=== PATIENT | female | born 1985 | race Caucasian/White ===

== ENCOUNTER 2017-06-06 16:46 | Emergency (ER) | payer MEDICAID ==
[~2017-06-06] VITALS: Ht 162.6 cm; Wt 82.0 kg
[2017-06-06] MEDS ORDERED: ALBUTEROL (0.083%) 2.5MG/3ML NEB HHN ONE (20:00)
[2017-06-06] MEDS ORDERED: IBUPROFEN 600MG TABLET PO ONE (20:00)
[2017-06-06 21:20] VITALS: BP 129/77
== END 2017-06-06 21:21 | disposition home or self-care (01) ==
LOC: ER 18:25
DX: S20.219A Contusion of unspecified front wall of thorax, initial encounter (principal); R05 Cough; X58.XXXA Exposure to other specified factors, initial encounter; Y93.89 Activity, other specified; Y92.89 Other specified places as the place of occurrence of the external cause; Y99.8 Other external cause status
CPT/HCPCS: 71010; 93005; 94640; 99284; J7611

== ENCOUNTER 2020-08-03 03:55 | Emergency (ER) | payer MEDICAID ==
[~2020-08-03] VITALS: Ht 160 cm; Wt 93.0 kg
[2020-08-03] MEDS ORDERED: ONDANSETRON 4MG ODT PO STA (04:26)
[2020-08-03] MEDS ORDERED: ACETAMINOPHEN 325MG TABLET PO STA (04:26)
[2020-08-03] MEDS ORDERED: FAMOTIDINE 20MG TABLET PO ONE (04:30)
[2020-08-03 05:11] LABS: CLARITY URINE CLEAR (CLEAR); COLOR URINE YELLOW (YELLOW); KETONES URINE NEGATIVE (NEGATIVE); LEUKOCYTE ESTERASE URINE 2+ (NEGATIVE); NITRITE URINE NEGATIVE (NEGATIVE); OCCULT BLOOD URINE TRACE (NEGATIVE); PROTEIN URINE TRACE (NEGATIVE); SPECIFIC GRAVITY URINE 1.023 (1.005-1.030)
[2020-08-03 05:42] VITALS: BP 133/86
== END 2020-08-03 05:46 | disposition home or self-care (01) ==
LOC: ER 03:55
DX: K29.00 Acute gastritis without bleeding (principal); N39.0 Urinary tract infection, site not specified; R51.9 Headache, unspecified; R11.2 Nausea with vomiting, unspecified
CPT/HCPCS: 81003; 81025; 99284; Q0162